=== PATIENT | female | born 1995 | race Caucasian/White ===

== ENCOUNTER 2020-06-30 22:35 | Observation (INO) | payer BC, SELFPAY ==
--- NOTE | ~2020-06-30 | CT_ITS ---
EXAMINATION: CT abdomen pelvis w con EXAM DATE: 07/01/2020 02:02 INDICATION: Abdominal pain, recent UTI. Leukocytosis and nausea. TECHNIQUE: Spiral CT of the abdomen and pelvis was performed following intravenous injection of 100 m L Omnipaque 350. Axial, coronal and sagittal images were reviewed. The dose-length product (DLP) fo r this examination was 402.46 mGy-cm. The exposure was tailored according to patient size (auto mA e xposure control), and iterative reconstruction (ASIR) was used as additional dose reduction technique . FINDINGS: The liver, spleen, adrenal glands and pancreas are unremarkable. Gallbladder is unremarkab le. No biliary obstruction. Portal and splenic veins are patent. Kidneys enhance symmetrically. T here is no hydronephrosis. The uterus is anteverted and morphologically normal. Bladder unremarkabl e. Slight enhancement to the ureteral urothelium bilaterally, could indicate upper urinary tract infe ction. There is no retroperitoneal or pelvic lymphadenopathy. The appendix is normal. The stomach and small bowel are unremarkable. There is moderate to large am ount of colonic stool. No free intraperitoneal gas. The heart is normal in size. There are no pe ricardial or pleural effusions. The lung bases are unremarkable. The bones are unremarkable. IMPRESSION: 1. Mildly enhancing bilateral ureteral urothelium could indicate upper UTI. No CT evidence of pyelon ephritis. 2. Moderate to large amount of colonic stool and gas. Reviewed, dictated and finalized at location A. IMPRESSION: 1. Mildly enhancing bilateral ureteral urothelium could indicate upper UTI. No CT evidence of pyelonephritis. 2. Moderate to large amount of colonic stool and gas.
--- NOTE | ~2020-06-30 | XR_ITS ---
EXAMINATION: XR chest 2V EXAM DATE: 07/01/2020 02:05 INDICATION: Sepsis, numbness. TECHNIQUE: Frontal and lateral projections of the chest obtained and reviewed. There is no prior tu dy for comparison. FINDINGS: The lungs are clear. There are no pleural effusions. The cardiomediastinal silhouette is within normal limits. There is no pneumothorax suspected. There are no osseous abnormalities identi fied. Moderate to large amount of colonic gas. IMPRESSION: No acute cardiopulmonary findings. Moderate to large colonic gas. Reviewed, dictated and finalized at location A.
[2020-06-30 22:44] VITALS: BP 137/81; PULSE 122; RESP 17; TEMP 37.3; O2SAT 99
[2020-06-30 23:03] LABS: Basophils Absolute Auto 0.1 K/mm3 (0.0-0.1); Basophils Percent Auto 0.4 % (0.2-1.2); Eosinophils Absolute Auto 0.1 K/mm3 (0-0.3); Eosinophils Percent Auto 0.6 % (0-4.4); Hematocrit 40.5 % (37.0-47.0); Hemoglobin 13.6 g/dL (12.0-15.0); Immature Granulocyte Absolute 0.13 K/mm3 (0.00-0.031); Immature Granulocyte Percent A 0.7 % (0-0.5); Lymphocytes Absolute Auto 2.76 K/mm3 (0.9-3.2); Lymphocytes Percent Auto 15.2 % (18.3-44.2); Mean Corpuscular HGB Conc 33.6 g/dl (32-36); Mean Corpuscular Hemoglobin 29.2 pg (26-34); Mean Corpuscular Volume 86.9 fl (80-100); Mean Platelet Volume 11.2 fl (7.4-10.4); Monocytes Absolute Auto 1.6 K/mm3 (0.1-0.6); Monocytes Percent Auto 8.5 % (2.6-8.5); Neutrophils Absolute Auto 13.5 K/mm3 (1.3-6.7); Neutrophils Percent Auto 74.6 % (45.5-73.1); Platelet Count Result 431 k/mm3 (150-375); Red Blood Count 4.66 M/mm3 (4.2-5.4); Red Cell Distribution Width 12.3 % (11.5-14.5); White Blood Count 18.2 K/mm3 (4.5-10.0)
[2020-06-30 23:15] LABS: Anion Gap 11 mmol/L (8-16); Blood Urea Nitrogen 10 mg/dL (7-17); Calcium 9.5 mg/dL (8.4-10.2); Carbon Dioxide 23 mmol/L (22-30); Chloride 104 mmol/L (98-107); Estimated CRCL calculation 106 ml/min; Estimated Glomerular Filt Rate > 60; Glucose 141 mg/dL (65-105); Lactic Acid Reflex 1.2 mmol/L (0.7-2.1); Potassium 4.1 mmol/L (3.4-5.0); Sodium 138 mmol/L (137-145)
[2020-06-30 23:43] LABS: Add Urine Microscopic? NO; Appearance Urine Clear (Clear); Bilirubin Urine Negative (Negative); Blood Urine Negative (Negative); Color Urine Yellow (Yellow); Glucose Urine UA Negative (Negative); Ketones Urine Negative (Negative); Leukocyte Esterase Ur Negative LEU/UL (Negative); Nitrate Urine Negative (Negative); Protein Urine Negative (Negative); Specific Grav Ur 1.014 (1.001-1.035); Urobilinogen Urine Negative mg/dL (<2.0)
--- NOTE | 2020-06-30 23:53 | ED.GENADULT ---
HPI - General Adult General Chief complaint: Unspecified Stated complaint: my arms are going numb, Time Seen by Provider: 06/30/20 23:53 Source: patient and family Mode of arrival: ambulatory Limitations: no limitations History of Present Illness HPI narrative: Patient is a 24-year-old female who presents for evaluation of abdominal pain. Patient is reporting subjective fevers, fatigue, abdominal pain and back pain over the past 24 hours. Patient states she saw Dr. Yang earlier this week for abdominal pain and was diagnosed with a urinary tract infection started on Bactrim and then changed over to ciprofloxacin and she has been taking that as prescribed. She denies any vaginal bleeding, discharge, dysuria or hematuria. She reports aching back pain in the bilateral flanks. She states at times she feels as if her arms are tingling, but denies any arm weakness, patient does states she feels diffusely weak and tired. Patient reports nausea without vomiting. She reports pain throughout her abdomen. Related Data Home Medications Medication Instructions Recorded Confirmed ciprofloxacin HCl 06/30/20 nitrofurantoin monohyd/m-cryst 06/30/20 sulfamethoxazole-trimethoprim 06/30/20 Allergies Allergy/AdvReac Type Severity Reaction Status Date / Time diphenhydramine Allergy Unknown Unknown Verified 06/30/20 23:28 Penicillins AdvReac Fainting Verified 06/30/20 23:28 Review of Systems Review of Systems: Narrative: CONSTITUTIONAL: Subjective fever and chills EYES: Denies visual changes ENT: Denies rhinorrhea, congestion, sore throat, or otalgia. CARDIOVASCULAR: Denies chest pain, palpitations, or edema. RESPIRATORY: Denies cough or dyspnea. GASTROINTESTINAL: Reports abdominal pain and nausea GENITOURINARY: Denies dysuria or hematuria. SKIN: Denies rash or itching. MUSCULOSKELETAL: Reports flank pain NEUROLOGIC: Denies headache, numbness, reports feeling diffusely weak PMFSH Past Medical History Medical History (Updated 07/01/20 @ 02:28 by Diane Alvarez MD) No pertinent past medical history Social History Social History (Updated 07/01/20 @ 00:39 by Diane Alvarez MD) Smoking status: Never smoker Alcohol intake: never Substance use: never Gender identity (if verbalized by the patient): Female Exam Narrative: Exam Narrative: GENERAL: Awake, alert, conversant, uncomfortable appearing HEAD: Normocephalic, atraumatic. EYES: PERRLA and EOMI. ENT: Nares clear, no rhinorrhea or epistaxis. Mucous membranes moist. NECK: Supple. CHEST: No respiratory distress, breathing even and non labored HEART: Tachycardic rate, sinus rhythm ABDOMEN: Mild distention, diffusely tender, positive guarding, bilateral flank tenderness EXTREMITIES: Normal range of motion. No edema. SKIN: Warm, dry, no rash. NEURO:No focal deficits. Alert and oriented x3 Course Vital Signs Vital signs: Vital Signs Temperature 37.3 C 06/30/20 22:44 Pulse Rate 122 H 06/30/20 22:44 Respiratory Rate 17 06/30/20 22:44 Blood Pressure 137/81 06/30/20 22:44 Pulse Oximetry 99 06/30/20 22:44 Temperature 37.3 C 06/30/20 22:44 Pulse Rate 84 07/01/20 02:29 Respiratory Rate 18 07/01/20 02:29 Blood Pressure 117/67 07/01/20 02:29 Pulse Oximetry 100 07/01/20 02:29 Medical Decision Making MDM Narrative Medical decision making narrative: Patient presenting for evaluation of abdominal pain, flank pain in the setting of known urinary tract infection, patient currently taking ciprofloxacin. Patient states she no longer is having any dysuria, hematuria or frequency but has had flank pain, nausea, abdominal pain. On exam the patient has a quite tender abdominal exam and bilateral flank tenderness. She is tachycardic. IV access obtained, patient was given a 30 mL/kg fluid bolus, antiemetic and pain medication. Laboratory results notable for a significant leukocytosis. No lactic acidosis. Urinalysis is actually quite cl
--- NOTE | 2020-07-01 00:39 | PC.NURSE ---
Called lab to add on c-reactive protein
[2020-07-01 00:50] VITALS: BP 123/55; PULSE 87; RESP 16; O2SAT 100
[2020-07-01 01:04] LABS: CRP 1.3 mg/dL (<1.0)
[2020-07-01] MEDS: ONDANSETRON INJ 4 MG/2 ML VIAL IV PUSH (01:29)
[2020-07-01] MEDS: MORPHINE SULFATE 4 MG/ML INJ IV PUSH (01:30)
[2020-07-01 02:00] VITALS: TEMP 37.3
[2020-07-01 02:29] VITALS: BP 117/67; PULSE 84; RESP 18; O2SAT 100
[2020-07-01 03:24] VITALS: BP 111/71; PULSE 81; RESP 16; O2SAT 100
[2020-07-01] MEDS: SODIUM CHLORIDE 0.9% IV 1,000 ML 125 ML IV CONT (04:17)
--- NOTE | 2020-07-01 04:23 | ADMGEN ---
This patient, Sharla Toure, was admitted to 2 Medical Room 247-. Patient/family oriented to hospital policies and general routines including ID bracelet, bed and alarms, visiting hours, pain management, procedures, bathroom and other care routines, personal items, smoking policy, room service/diet, and visiting hours. Valuables list has been completed. Information on how to activate the Rapid Response Team has been discussed. Patient/Family are encouraged to report perceived risks to care and to ask questions if they do not understand what they are told or what they should do.
[2020-07-01 06:00] VITALS: BP 113/67; PULSE 83; RESP 21; TEMP 36.1; O2SAT 100; BMI 27.1
[2020-07-01] MEDS: polyethylene glycoL 3350 17 GM POWD.PACK PO (10:24)
[2020-07-01] MEDS: PANTOPRAZOLE SOD SESQUIHYDRATE 20 MG TAB PO (10:24)
[2020-07-01] MEDS: SIMETHICONE 125 MG CHEW TAB PO (10:24)
[2020-07-01 11:00] LABS: Hematocrit 36.7 % (37.0-47.0); Hemoglobin 12.3 g/dL (12.0-15.0); Mean Corpuscular HGB Conc 33.5 g/dl (32-36); Mean Corpuscular Hemoglobin 29.6 pg (26-34); Mean Corpuscular Volume 88.2 fl (80-100); Mean Platelet Volume 11.4 fl (7.4-10.4); Platelet Count Result 383 k/mm3 (150-375); Red Blood Count 4.16 M/mm3 (4.2-5.4); Red Cell Distribution Width 12.4 % (11.5-14.5); White Blood Count 10.7 K/mm3 (4.5-10.0)
[2020-07-01 11:26] LABS: Alanine Aminotransferase 10 U/L (4-35); Albumin Level 4.2 g/dL (3.5-5.1); Alkaline Phosphatase 65 U/L (38-126); Anion Gap 9 mmol/L (8-16); Aspartate Amino Transferase 18 U/L (14-36); Bilirubin,Total 0.1 mg/dL (0.2-1.3); Blood Urea Nitrogen 7 mg/dL (7-17); Calcium 9.2 mg/dL (8.4-10.2); Carbon Dioxide 24 mmol/L (22-30); Chloride 108 mmol/L (98-107); Estimated CRCL calculation 117 ml/min; Estimated Glomerular Filt Rate > 60; Glucose 96 mg/dL (65-105); Potassium 3.7 mmol/L (3.4-5.0); Sodium 141 mmol/L (137-145)
[2020-07-01 11:54] LABS: Amphetamine Screen Urine Negative (Negative); Barbiturate Screen Urine Negative (Negative); Benzodiazepines Screen Urine Negative (Negative); Cannabinoid Screen Urine Negative (Negative); Cocaine Screen Urine Negative (Negative); Methadone Screen Urine Negative (Negative); Opiate Screen Urine Negative (Negative); Phencyclidine Screen Urine Negative (Negative)
--- NOTE | 2020-07-01 12:01 | PM.DS ---
DS: Admitting Diagnosis Admitting Diagnosis Admitting Diagnosis: Sepsis, Pyelonephritis DS: Summary Time Spent with Patient Time attestation: Total time spent providing and/or coordinating discharge services: DS: Data Data Completed and Pending Labs on day of discharge: Labs from last 24 hours 07/01/20 07/01/20 07/01/20 10:34 10:16 10:16 WBC 10.7 H RBC 4.16 L Hgb 12.3 Hct 36.7 L MCV 88.2 MCH 29.6 MCHC 33.5 RDW 12.4 Plt Count 383 H MPV 11.4 H Immature Gran % (Auto) Neut % (Auto) Lymph % (Auto) [place] % (Auto) Eos % (Auto) Baso % (Auto) Lymph # (Auto) [place] # (Auto) Eos # (Auto) Baso # (Auto) Abs Immat Gran (auto) Absolute Neuts (auto) Absolute Nucleated RBC Nucleated RBC % Sodium 141 Potassium 3.7 Chloride 108 H Carbon Dioxide 24 Anion Gap 9 BUN 7 Creatinine 0.60 L Estim Creat Clear Calc 117 Estimated GFR > 60 Glucose 96 Lactic Acid Calcium 9.2 Total Bilirubin Direct Bilirubin AST ALT Alkaline Phosphatase C-Reactive Protein Total Protein Albumin Urine Color Urine Appearance Urine pH Ur Specific Rice Urine Protein Urine Glucose (UA) Urine Ketones Ur Blood (Man) Urine Nitrate Urine Bilirubin Urine Urobilinogen Leukocyte Esterase Rfl Urine Opiates Screen Negative Urine Methadone Screen Negative Ur Barbiturates Screen Negative Ur Phencyclidine Scrn Negative Ur Amphetamine Screen Negative U Benzodiazepines Scrn Negative Urine Cocaine Screen Negative U Cannabinoids Screen Negative 07/01/20 06/30/20 06/30/20 10:16 23:36 22:57 WBC RBC Hgb Hct MCV MCH MCHC RDW Plt Count MPV Immature Gran % (Auto) Neut % (Auto) Lymph % (Auto) [place] % (Auto) Eos % (Auto) Baso % (Auto) Lymph # (Auto) [place] # (Auto) Eos # (Auto) Baso # (Auto) Abs Immat Gran (auto) Absolute Neuts (auto) Absolute Nucleated RBC Nucleated RBC % Sodium Potassium Chloride Carbon Dioxide Anion Gap BUN Creatinine Estim Creat Clear Calc Estimated GFR Glucose Lactic Acid Calcium Total Bilirubin 0.1 L Direct Bilirubin 0.0 AST 18 ALT 10 Alkaline Phosphatase 65 C-Reactive Protein 1.3 H Total Protein 8.0 Albumin 4.2 Urine Color Yellow Urine Appearance Clear Urine pH 5.0 Ur Specific Rice 1.014 Urine Protein Negative Urine Glucose (UA) Negative Urine Ketones Negative Ur Blood (Man) Negative Urine Nitrate Negative Urine Bilirubin Negative Urine Urobilinogen Negative Leukocyte Esterase Rfl Negative Urine Opiates Screen Urine Methadone Screen Ur Barbiturates Screen Ur Phencyclidine Scrn Ur Amphetamine Screen U Benzodiazepines Scrn Urine Cocaine Screen U Cannabinoids Screen 06/30/20 06/30/20 06/30/20 22:57 22:57 22:57 WBC 18.2 H RBC 4.66 Hgb 13.6 Hct 40.5 MCV 86.9 MCH 29.2 MCHC 33.6 RDW 12.3 Plt Count 431 H MPV 11.2 H Immature Gran % (Auto) 0.7 H Neut % (Auto) 74.6 H Lymph % (Auto) 15.2 L [place]bert % (Auto) 8.5 Eos % (Auto) 0.6 Baso % (Auto) 0.4 Lymph # (Auto) 2.76 [place] # (Auto) 1.6 H Eos # (Auto) 0.1 Baso # (Auto) 0.1 Abs Immat Gran (auto) 0.13 H Absolute Neuts (auto) 13.5 H Absolute Nucleated RBC 0.0 Nucleated RBC % 0.0 Sodium 138 Potassium 4.1 Chloride 104 Carbon Dioxide 23 Anion Gap 11 BUN 10 Creatinine 0.70 Estim Creat Clear Calc 106 Estimated GFR > 60 Glucose 141 H Lactic Acid 1.2 Calcium 9.5 Total Bilirubin Direct Bilirubin AST ALT Alkaline Phosphatase C-Reactive Protein Total Protein Albumin Urine Color Urine Appearance Urine pH Ur Specific Rice Urine Pr
--- NOTE | 2020-07-01 12:02 | PM.SD ---
Same Day Admit/Disch: HPI History of Present Illness Chief complaint: Sepsis, Pyelonephritis Narrative: Sharla Toure is a 24 year old female who presented emergency room for abdominal pain, weakness and overall feeling unwell. Patient states that on Tuesday she noted blood in her urine with some stomach pain and back pain and was unable to stand up straight. She went to see her doctor, Dr. jones, who did a urinalysis on her and prescribed her Bactrim. She then said Tuesday she felt much better but started to feel bad again on Tuesday. She called her primary care physician who prescribed her Cipro. She took 1 pill and started to feel very funny. She felt weak, had abdominal pain, and felt like her fingers were tingling. She came in the emergency room for this reason. Since then, her hematuria has improved and she is urinating fine. She no longer has the abdominal pain and she has been eating and drinking fine today. Says she has some lightheadedness when she came in but overall is feeling better. She denies chest pain, shortness of breath, fevers, nausea, vomiting, diarrhea but does have some constipation. She says she usually has a bowel movement once a week and that is been pretty constant for her. She has no concerns for STIs or . She just had her Pap and everything came back normal according to her. [facility] Past Medical History Medical History No pertinent past medical history Family History Family History (Updated 07/01/20 @ 15:37 by Cathie Brock PA-C) Mother Healthy adult Father Healthy adult Social History Social History (Updated 07/01/20 @ 15:37 by Cathie Brock PA-C) Social History: Patient does not smoke cigarettes or drink alcohol. She smokes marijuana about twice a week. She does no drugs. 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 She would like to designate her mother, Henna, as her surrogate decision maker. She would like to be a full code Smoking status: Never smoker Alcohol intake: never Substance use: current Substance use type: marijuana Last use: 05/31/2020 Gender identity (if verbalized by the patient): Female Spiritual care concerns: No Same Day Admit/Disch: Med Pre-admit Medications Home Medications Medication Instructions Recorded Confirmed Type doxycycline hyclate 100 mg PO BID 7 Days #14 cap 07/01/20 Rx pantoprazole [Protonix] 20 mg PO QAM #30 tablet 07/01/20 Rx polyethylene glycol 3350 [Miralax] 17 g PO QAM #30 ea 07/01/20 Rx Exam Narrative: Exam Narrative: General:Well developed well nourished patient resting comfortably in bed in no acute distress HEENT: Normocephalic, atraumatic, PERRL, Sclerae anicteric, oral mucosa moist. Neck: Supple Resp: CTA Heart: RRR with no murmurs Abd: Soft, nontender. No pain to palpation. Positive bowel sounds Skin: Warm and dry Extremities: No swelling, erythema or pain to palpation Neuro: Alert and Oriented x4 . CN 2-12 intact. No focal neurological deficits. DS: Data Data Completed and Pending Labs on day of discharge: Labs from last 24 hours 07/01/20 07/01/20 07/01/20 10:34 10:16 10:16 WBC 10.7 H RBC 4.16 L Hgb 12.3 Hct 36.7 L MCV 88.2 MCH 29.6 MCHC 33.5 RDW 12.4 Plt Count 383 H MPV 11.4 H Immature Gran % (Auto) Neut % (Auto) Lymph % (Auto) [place] % (Auto) Eos % (Auto) Baso % (Auto) Lymph # (Auto) [place] # (Auto) Eos # (Auto) Baso # (Auto) Abs Immat Gran (auto) Absolute Neuts (auto) Absolute Nucleated RBC Nucleated RBC % Sodium 141 Potassium 3.7 Chloride 108 H Carbon Dioxide 24 Anion Gap 9 BUN 7 Creatinine 0.60 L Estim Creat Clear Calc 117 Estimated GFR > 60 Glucose 96 Lactic Acid Calcium 9.2 Total Bilirubin Direct Bilirubin AST ALT Alkaline Phosphatase C-Reactive Protein Total Protein Albumin Uri
--- NOTE | 2020-07-04 07:42 | PC.NURSE ---
Urine cx is negative.
--- NOTE | 2020-07-08 10:46 | PC.NURSE ---
Blood cx are negative.
== END 2020-07-01 12:42 | disposition home or self-care (01) ==
LOC: ANHED 07-01 02:28 → ANH2MED 07-01 03:24
PROVIDERS: Physician Assistant; Admitting Provider Internal Medicine; Emergency Provider Emergency Medicine; PCP Family Medicine; Visit Provider Internal Medicine
DX: A41.9 Sepsis, unspecified organism (principal); N39.0 Urinary tract infection, site not specified; K59.00 Constipation, unspecified; N83.202 Unspecified ovarian cyst, left side
CPT/HCPCS: 36415; 71046; 74177; 80048; 80076; 80307; 81003; 81025; 83605; 85025; 85027; 86140; 87040; 87086; 96361; 96365; 96375; 99285; A9270; G0378; J0131; J0696; J2270; J2405; J7030; J7050; Q9967

== ENCOUNTER 2020-07-19 01:28 | Outpatient (CLI) | payer BC, SELFPAY ==
[2020-07-19 18:02] LABS: SARS-CoV-2 RNA PCR Negative
== END 2020-07-19 01:29 | disposition home or self-care (01) ==
LOC: ANHCOVIDDT 01:28
PROVIDERS: PCP Family Medicine; Visit Provider Internal Medicine Gastroenterology
DX: Z01.812 Encounter for preprocedural laboratory examination (principal); Z20.828 Contact with and (suspected) exposure to other viral communicable diseases
CPT/HCPCS: 87635; C9803; U0003

== ENCOUNTER 2020-07-21 01:14 | Day surgery (SDC) | payer BC, SELFPAY ==
[2020-07-16 13:38] VITALS: BMI 25.7
[2020-07-21 08:27] VITALS: BP 114/62; PULSE 82; RESP 16; TEMP 36.3; O2SAT 100; BMI 25.9
[2020-07-21] MEDS: LACTATED RINGERS 1,000 ML 150 ML IV CONT (08:48)
--- NOTE | 2020-07-21 08:52 | PM.HPGS ---
History of Present Illness History of Present Illness Consent: Risks, benefits, and alternatives have been discussed and questions answered. Patient agrees to proceed with procedure. Chief complaint: Epigastric pain Possible Ulcer Narrative: Sharla Toure is a 24 year old W female referred for gastroscopy for evaluation of epigastric abdominal pain nausea and bloating. Patient was recently treated for urinary tract infection treated with doxycycline and the abdominal pain got somewhat better with this. She has had a couple episodes of loose stools. She denies any evidence of gastrointestinal bleeding. She denies any nonsteroidal inflammatory drugs. [facility] Past Medical History Medical History No pertinent past medical history Family History Family History (Updated 07/01/20 @ 15:37 by Cathie Brock PA-C) Mother Healthy adult Father Healthy adult Social History Social History (Updated 07/01/20 @ 15:37 by Cathie Brock PA-C) Social History: Patient does not smoke cigarettes or drink alcohol. She smokes marijuana about twice a week. She does no drugs. 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 She would like to designate her mother, Henna, as her surrogate decision maker. She would like to be a full code Smoking status: Never smoker Alcohol intake: never Substance use: current Substance use type: marijuana Other substance usage details: 2 TIMES A MONTH Last use: 04/2020 Living arrangements: with friend(s) Gender identity (if verbalized by the patient): Female Spiritual care concerns: No Meds Home Medications and Allergies Home Medications Medication Instructions Recorded Confirmed Type pantoprazole [Protonix] 20 mg PO QAM #30 tablet 07/01/20 07/16/20 Rx polyethylene glycol 3350 [Miralax] 17 g PO QAM #30 ea 07/01/20 Rx Allergies Allergy/AdvReac Type Severity Reaction Status Date / Time diphenhydramine Allergy Severe suicidal Verified 07/21/20 08:25 apple Allergy Swelling Verified 07/21/20 08:25 of Lip/Tongue/Throat ruby Allergy Swelling Verified 07/21/20 08:25 of Lip/Tongue/Throat Penicillins AdvReac Fainting Verified 07/21/20 08:25 Vital Signs Vital Signs - 24 hr 07/21/20 08:27 Temperature 36.3 C L Pulse Rate 82 Respiratory Rate 16 Blood Pressure 114/62 Pulse Oximetry 100 Exam Const: Orientation/consciousness: patient oriented x3 Resp: Auscultation: clear to auscultation bilaterally Cardio: Rate: regular rate Rhythm: regular rhythm Heart sounds: no murmurs GI: GI Palp: Yes Soft to palpation, No Tenderness to palpation present (GI), Yes No hepatosplenomegaly present and No Palpable mass present Auscultation: normal bowel sounds Neuro: General: patient oriented x3 and no focal motor deficits Extrem: General: no pedal edema Assessment and Plan Additional Plan EGD for evaluation of abdominal pain abdominal bloating or nausea
[2020-07-21 10:41] VITALS: BP 91/44; PULSE 77; RESP 20; O2SAT 100
[2020-07-21 10:51] VITALS: BP 113/63; PULSE 87; RESP 20; O2SAT 100
[2020-07-21 11:01] VITALS: BP 110/74; PULSE 84; RESP 20; O2SAT 100
== END 2020-07-21 11:29 | disposition home or self-care (01) ==
PROVIDERS: PCP Family Medicine; Visit Provider Internal Medicine Gastroenterology
PROC: 0DJ08ZZ Inspection of Upper Intestinal Tract, Via Natural or Artificial Opening Endoscopic (ICD-10-PCS; CPT 43235; principal; 2020-07-21 09:30)
DX: R10.13 Epigastric pain (principal); R14.0 Abdominal distension (gaseous); R11.0 Nausea; K21.9 Gastro-esophageal reflux disease without esophagitis; Z88.0 Allergy status to penicillin
CPT/HCPCS: 43239; 87081; 88305; J2704; J7120

== ENCOUNTER 2020-12-02 08:25 | Outpatient (CLI) | payer BC, SELFPAY ==
--- NOTE | ~2020-12-02 | XR_ITS ---
EXAMINATION: XR UGIAC w small bowel EXAM DATE: 12/02/2020 09:59 INDICATION: Abd pain, hx of abnormal hydrogen breath test. TECHNIQUE: Dumper radiograph was acquired. Standard single and double contrast barium upper GI examina tion was performed followed by small bowel series. Spot images of the terminal ileum were acquired. The DAP for this procedure was 16 Gycm2. FINDINGS: There is no esophageal stricture, diverticulum or mass identified. Gastroesophageal juncti on is normal in appearance. Reflux was not demonstrated during this examination. The stomach has a normal appearance without evidence of mass lesion, ulceration or filling defect. T here is normal rugal fold pattern. The duodenum and duodenal sweep are normal in appearance. Ileal and jejunal fold patterns are normal. There is no small bowel wall thickening or mass effect d isplacing small bowel. There are no intraluminal filling defects identified. There is no small austin l dilation. Terminal ileum is normal in appearance. Contrast reached the colon by 30 minutes. IMPRESSION: Normal exam. Reviewed, dictated and finalized at location A. [employer] IMPRESSION: Normal exam.
== END 2020-12-02 08:26 | disposition home or self-care (01) ==
PROVIDERS: Family Provider Family Medicine; PCP Family Medicine; Visit Provider Internal Medicine Gastroenterology
DX: K63.89 Other specified diseases of intestine (principal)
CPT/HCPCS: 74246; 74248

== ENCOUNTER 2021-01-08 09:10 | Outpatient (CLI) | payer BC, SELFPAY ==
--- NOTE | ~2021-01-08 | NM_ITS ---
EXAM: NM gastric emptying study DATE: 01/08/2021 14:00 INDICATION: Abdominal distention. TECHNIQUE: A gastric emptying study was performed using the methodology of Lou PORTER, et al. J Nucl Med 2007; 48:568-572. The patient was given a meal consisting of 2 scrambled eggs labeled with 0.944 mCi Tc-99m sulfur colloid, 2 slices of toast, two packages of jam, and approximately 120 mL of water . Simultaneous anterior and posterior 1-min images of the abdomen were obtained with the patient supi ne at multiple time points over a total period of 4 hours. The geometric mean of anterior and posteri or views was determined, and the percentage retention was calculated for each time point. COMPARISON: CT abdomen and pelvis 07/01/2020 FINDINGS: Gastric retention of the radiotracer-labeled meal was 53%, 24%, and 2% at the 1-hour, 2-ho ur, and 4-hour time points, respectively. With this technique, apparent rapid gastric emptying is sug gested by <30% gastric retention at 1 hour. Delayed gastric emptying is defined by gastric retention of >90% at 1 hour, >60% retention at 2 hours, or >10% retention at 4 hours. IMPRESSION: 1. Normal gastric emptying. Reviewed, dictated and finalized at location A. [employer]IVER IMPRESSION: 1. Normal gastric emptying.
== END 2021-01-08 09:11 | disposition home or self-care (01) ==
PROVIDERS: PCP Family Medicine; Visit Provider Internal Medicine Gastroenterology
DX: R14.0 Abdominal distension (gaseous) (principal)
CPT/HCPCS: 78264; A9541

== ENCOUNTER 2025-05-27 12:32 | Outpatient (CLI) | payer OTHER, SELFPAY ==
--- OUTSIDE RECORDS SUMMARY | 2025-05-27 12:39 | XMS_ITS | Data Portability ---
Author Organization [facility] Address [address] [place] [place] [address] Assessment No assessment recorded. Plan of Treatment Reminders Order Date Submit Date Provider Last Modified By Organization Details Last Modified Time Details Appointments None recorded. Lab urinalysi s, dipstick 2019 020 [email or web address] [facility], [address], [place], [address], 0 13:07:47 Referral None recorded. Procedures None recorded. Surgeries None recorded. Imaging None recorded. Medication Orders Bactrim DS 800 mg-160 mg tablet 2019 020 INTERFACE [id number], [address] , [place], [place], [id number], 0 15:08:03 Patient TargetsNo targets recorded. Patient InstructionsNo instructions recorded. Reason for Referral None Reported. Results Created Date Observation Date Name Description Value Unit Range Abnormal Flag Note LastModifiedBy Organization Detail LastModifiedTime 06/27/20 20 06/30/2020 cultu re, urine specimen source Urine - Void Not Available [facility] ([facility]) [address] [facility] [address], [place], [address], 06/30/2020 10:23:47 06/27/20 20 06/30/2020 cultu re, urine culture, urine See Below See Micro biolo gy Repor t Not Available [facility] ([facility]) [address], [place], [address], 06/30/2020 10:23:47 06/27/20 20 06/30/2020 cultu re, urine staphylococc us saprophyticu s 25,000 -50,00 0 CFU/ml Staphy lococc us saprop hyticu s Not Available [facility] ([facility]) [address], [place], [address], 06/30/2020 10:23:47 06/27/20 20 06/30/2020 cultu re, urine sensitivity panel See Below ___ Organ ism S.sap ro Antib iotic INTER P ___ Dapto mycin S Genta micin S Levof loxac in S Linez olid S Nitro furan toin S Oxaci llin R Penic illin R Rifam pin S Tetra cycli ne S Vanco mycin S __ S=HENNY CEPTI BLE I=INT ERMED IATE R=RES ISTAN T Not Available [facility] ([facility]) [address] [facility] [address], [place], [address], 06/30/2020 10:23:47 06/27/20 20 06/30/2020 pap, LB Pap test thin prep Negati ve for Intrae pithel ial Lesion or Malign isma normal ACCES RAMON #: [id number]-PS [id number] Sourc e: Cervi jerica/E ndoce rvica l LMP: 06/14 Date Taken : 06/27 Speci men Type: ThinP rep Vial Date Repor prasanna: 2019 Clini jerica Data: Cytot ech: Kaitl in Suzanna Sheikh , CT( CP) Date Repor prasanna: 2019 Speci men Adequ acy: Satis facto ry for evalu ation No endoc ervic al/tr ansfo rmati on zone compo nent prese nt Gener al Categ oriza tion: NEGAT CATERINA FOR INTRA EPITH ELIAL LESIO N OR MALIG GRISELDA This speci men has been eliseo zed by the ThinP rep Imagi ng Syste m, an inter activ e compu ter syste m which coco ts the lab in the scree eliana of ThinP rep Pap Test slide s. Follo wing imagi ng, the slide was revie wed by a Cytot echno logis t and/o r Patho logis t. D N A A S S A Y S R E P O R T TEST NAME RESUL TS ----- ---- ----- -- HPV High Risk Scree n (TMA) ThinP rep Vial The human papil lomav irus (HPV) High Risk Scree n is an FDA-a pprov ed in-vi tro ampli fied nucle ic acid test for the quali tativ e detec tion of E6/E7 viral mRNA. Resul ts shoul d be corre lated with patie nt prese ntati on, histo ry, cervi jerica cytol ogy and other clini jerica and labor atory findi ngs. See https ://caprice Encision/s ericka/ fer lt/fi les/2 018-0 3/AW- 32075 _002_ 01.pd f for furth er infor matio n. Test perfo rmed by [facility] d/b/[facility], [address], [place] [address] , Juan Reilly ra, DO, [facility]. HPV High Risk *HPV NOT DETEC PRASANNA (TYPE S 16, 18, 31, 33, 35, 39, 45, 51, 52, 56, 58, 59, 66, 68) *HPV: The human papil lomav irus (HPV) High Risk Avni avelar is an FDA-a pprov ed in-vi tro ampli fied nucle ic acid test for the quali tativ e detec tion of E6/E7 viral mRNA. Resul ts shojere d be corre lated with maciel nt prese ntati on, histo ry, cervi jerica cytol ogy and other clini jerica and labor atory findi ngs. See https ://Handpay/s ites/ defau lt/fi les/2 018-0 3/AW- 50436 _002_ 01.pd f for manju er infor saturnino n. Test perfo rmed by [employer] [facility], d/b/a [facility], [address], [place] [address] , Juan Reilly ra, DO, [facility] [employer] [facility]. End of Repor t Techn ical servi cruz provi ded by [facility], d/b/a [facility], [address] [place] [address] Lam Mcgowan MD, [facility]. Case revie wed and diagn osis rende red at [facility], d/b/a [facility], [address] [place] [address] Lam Mcgowan MD, [facility]. CONFI DENTI AL Not Available [facility]) [address] [facility] [address], [place], [address], 06/30/2020 13:44:29 06/27/20 20 06/28/2020 HPV DNA, high- risk HPV high risk NOT DETECT ED normal Not Available [facility] ([facility]) [address] [facility] [address], [place], [address], 06/30/2020 13:44:29 06/27/20 20 06/27/2020 urina lysis , dipst ick Leukocytes ++ Not Available [facility] gen [address], [place], [address], 06/27/2020 15:03:47 06/27/20 20 06/27/2020 urina lysis , dipst ick Blood +++ Not Available [place] [address], [place], [address], 06/27/2020 15:03:47 Result Notes None recorded. Problems Name Problem SNOMED Code Status Onset Date Resolution Date Notes Provider Name and Address Organization Details Recorded Time Specializ ed medical examinati on Active 2014 Gynecolog ical Examinati on;Record ed Elsewhere : No Locati on: [facility] So urce: EHR Chron ic: N Practic e ID: 0001 Bill able Time: 03:45:00 PM Not Available [facility] 0 15:33:28 Family planning surveilla nce Active 2014 Contracep tive method surveilla nce;Recor ded Elsewhere : No Locati on: [facility] So urce: EHR Chron ic: N Practic e ID: 0001 Bill able Time: 03:45:00 PM Not Available [facility] 0 15:33:29 Implantat ion of subcutane ous contracep tive Active 2014 Insertion of implantab le subdermal contracep tive;Zak rded Elsewhere : No Locati on: [facility] So urce: EHR Chron ic: N Practic e ID: 0001 Bill able Time: 03:45:00 PM Not Available [facility] 0 15:33:[address] Concept Active 2015 Encntr for routine child health exam w/o abnormal findings; Recorded Elsewhere : No Locati on: [facility] So urce: EHR Chron ic: N Practic e ID: 0001 Bill able Time: 03:30:00 PM Not Available [facility] 0 15:33:29 Chlamydia l infection 265865622 Active 2015 Other chlamydia l diseases; Recorded Elsewhere : No Locati on: [facility] So urce: EHR Chron ic: N Practic e ID: 0001 Bill able Time: 03:30:00 PM Not Available [facility] 0 15:33:29 Evaluatio n finding Active 2015 Abnormal Pap smear of cervix;Re corded Elsewhere : No Locati on: [facility] So urce: EHR Chron ic: N Practic e ID: 0001 Bill able Time: 03:30:00 PM Not Available [facility] 0 15:33:29 Atypical squamous cells of undetermi meghna significa nce on cervical Papanicol aou smear 142643776 Active 2016 Atyp squam cell of undet signfc cyto smr crvx (ASC-US); Recorded Elsewhere : No Locati on: [facility] So urce: EHR Chron ic: N Practic e ID: 0001 Bill able Time: 01:30:00 PM Not Available [facility] 0 15:33:[address] Concept Active 2016 Encntr for general adult medical exam w/o abnormal findings; Recorded Elsewhere : No Locati on: [facility] So urce: EHR Chron ic: N Practic e ID: 0001 Bill able Time: 01:30:00 PM Not Available [facility] 0 15:33:30 Surveilla nce of contracep tion Active 2016 Encounter for surveilla nce of contracep tives, unspecifi ed;Record ed Elsewhere : No Locati on: [facility] So urce: EHR Chron ic: N Practic e ID: 0001 Bill able Time: 09:15:00 AM Not Available [facility] 0 15:33:30 Procedure Active 2016 Enctr srvlnc implantab le subdermal contracep tive;Prac karissa ID: 0001 Not Available [facility] 0 15:33:31 test negative 284726046 Active 2016 Encounter for test, result negative; Recorded Elsewhere : No Locati on: [facility] So urce: EHR Chron ic: N Practic e ID: 0001 Bill able Time: 11:00:00 AM Not Available [facility] 0 15:33:30 Low grade squamous intraepit helial lesion on cervical Papanicol aou smear 30770867605 105 Active 2016 LGSIL on pap smear of cervix;Re corded Elsewhere : No Locati on: [facility] So urce: EHR Chron ic: N Practic e ID: 0001 Bill able Time: 03:15:00 PM Not Available [facility] 0 15:33:[address] Concept Active 2016 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) (routine) w/o abn findings; Recorded Elsewhere : No Locati on: [facility] So urce: EHR Chron ic: N Practic e ID: 0001 Bill able Time: 04:00:00 PM Not Available [facility] 0 15:33:29 Infection screening Active 2017 Encounter for screening for oth infec/par astc diseases; Recorded Elsewhere : No Locati on: [facility] So urce: EHR Chron ic: N Practic e ID: 0001 Bill able Time: 10:15:00 AM Not Available [facility] 0 15:33:28 Syphilis test finding 287007341 Active 2017 Encntr screen for infection s w sexl mode of transmiss ;Recorded Elsewhere : No Locati on: [facility] So urce: EHR Chron ic: N Practic e ID: 0001 Bill able Time: 10:15:00 AM Not Available [facility] 0 15:33:29 Screening for malignant neoplasm of cervix Active 2017 Screening for malignant neoplasms of the cervix;Re corded Elsewhere : No Locati on: [facility] So urce: EHR Chron ic: N Practic e ID: 0001 Bill able Time: 10:15:00 AM Not Available [facility] 0 15:33:30 Problem Notes None recorded. Medical Equipment None Reported. Allergies Allergen ID Allergen Name Allergen Category Reaction Reaction Severity Criticality Documentation Date Start Date Code Code System Note Provider Name and Address Organization Details Recorded Time 1775 POLLEN EXTRACTS environme nt,medica tion Not available Not available Not available 06/27/2020 80853 6 RxNorm Faviola Menendez [facility] 0 14:54:52 1776 Product containin g penicilli n (product) medicatio n Not available Not available Not available 06/27/2020 12273 8001 SNOMED [address] Men[address] [facility] 0 14:54:58 Medications Name Sig Start Date Stop Date Status Note LastModified by Organization Details LastModified Time metronida zole 0.75 % (37.5 mg/5 gram) vaginal gel insert 1 applicat orful by vaginal route every day at bedtime for 5 nights 2017 active Prescrib ed Elsewher e: No Locat ion: [facility] odify By: keke salazar DateTime : 08/22/20 18 09:31:13 AM Not Available Not Available Not Available Macrobid 100 mg capsule Take 1 capsule every 12 hours by oral route for 7 days. 2019 active Not Available Not Available Not Avai lable meloxicam 7.5 mg tablet 06/27 completed Not Available Not Available Not Available ofloxacin 0.3 % ear drops 06/27 completed Not Available Not Available Not Available Bactrim DS 800 mg-160 mg tablet Take 1 tablet every 12 hours by oral route. 2019 active Not Available Not Available Not Avai lable Zithromax 500 mg tablet take 2 Tablet by oral route one time 11/22 completed Prescrib ed Elsewher e: No Locat ion: [facility]ify By: jose maria charles DateTime : 11/21/19 16 03:24:20 PM Not Available Not Available Not Available Ortho-Cyc nona (28) 0.25 mg-35 mcg tablet take 1 tablet by oral route every day 07/18 completed Prescrib ed Elsewher e: No [facility]at [facility] By: rosemary charles DateTime : 07/18/20 10:15:00 AM Not Available Not Available Not Available Flucelvax Quad (PF) 60 mcg (15 mcg x 4)/0.5 mL IM syringe 06/27 completed Not Available Not Available Not Available Vitals Date Recorded Body weight Body mass index (BMI) Body height Systolic And Diastolic Provider Name and Address Organization Details Last Updated DateTime 06/27/2020 84849.63 g 28 kg/m2 157.48 cm 124/76 mm[Hg] Faviola Menendez [facility] 06/27/2020 14:54:44 Social History None recorded. Functional Status None recorded. Mental Status None recorded. Family History Relationship Description Onset Age of this Age Resolved Age Notes LastModified by Organization Details LastModified Time Maternal Grandmother Diabetes mellitus [email or web address] Not available 2019 14:21:49 Maternal Grandmother Malignant tumor of breast [email or web address] Not available 2019 14:22:05 Notes:Maternal grandmother: Cancer, breast, Diabetes mellitus Maternal uncle: Hepatitis Medical History No medical history recorded. Gynecological History Statement/Question Response Date of LMP 06/14/2020 Obstetrics History GPAL:G 0 P 0 0 0 0 Past Encounters Encounter ID Performer Location Encounter Start Date Encounter Closed Date Diagnosis/Indication Diagnosis SNOMED-CT Code Diagnosis ICD10 Code Diagnosis Note [id number] Michael Yang MD [facility] [address] [address] 06/27/2020 14:45:41 06/27/2020 15:30:35 Urinary tract infectious disease 00886424 N39.0 this patient is a 24-year-ol d female with urinary tract symptoms. She has a positive the urine dip. Will culture urine. She will be treated with Bactrim. A repeat Pap smears performed follow-up on abnormal Pap smears. Health Concerns Section Related Observation LastModified by Organization Detai ls LastModified Time None Recorded Concern Status LastModified by Organization Details LastModified Time None Recorded Advance Directives Directive None Recorded Payers Insurance Date Sequence Insurance Name Policy Number Policy Lopes Covered Member ID Lopes Member ID Guarantor Name 06/27/2020 1 [place] [address] [id number] Sharla Toure Notes Date Note Type Note Provider Name a nd Address Organization Details Recorded Time 06/27/2020 text/html Lower Urinary Tract Symptoms (LUTS)Reported bypatient.Locat ion:left Quality:aching Severity:consta nt Duration:10-20 times a day Associated Symptoms:flank pain;urgency Is a 22-year-old female with urinary symptoms. She has urgency, dysuria, frequency. She reports some flank pain. She reports some hot cold body sensations. She denies any nausea, vomiting, fever, chills. Michael Yang MD [address], [place], [address], [facility] 06/27/2020 15:12:12 OBGyn Episode No OBEpisode recorded.
--- OUTSIDE RECORDS SUMMARY | 2025-05-27 12:39 | XMS_ITS | Clinical Summary ---
Author Organization [facility] Address [address] [place] [address] Care Team Providers Care Green Building Materials Designer Name Role Phone Abby Muñoz MD Primary Care Provider + Allergies Active Allergy Reactions Criticality Noted Date Comments Apple Anaphylaxis High 09/23/2020 Stop breathing Rajan Anaphylaxis High 09/23/2020 Raw cherries Diphenhydramine Mental status changes Medium 0 suicidal Penicillins Dizziness Low 09/23/2020 fainting Medications cetirizine (ZyrTEC) 10 mg tablet Take 10 mg by mouth as needed Active hyoscyamine (LEVSIN) 0.125 mg SL tablet DISSOLVE 1 TABLET UNDER THE TONGUE TWICE DAILY 60 tablet 07/30/20 21 Active ondansetron ODT (ZOFRAN-ODT) 4 mg disintegrating tablet Take 1 tablet (4 mg total) by mouth every 8 (eight) hours as needed for nausea or vomiting 20 tablet 09/01/20 23 Active famotidine (PEPCID) 40 mg tablet Take 1 tablet (40 mg total) by mouth nightly as needed for heartburn or indigestion 20 tablet 09/01/20 23 Active Active Problems No known active problems Social History Tobacco Use Types Packs/Day Years Used Date Smoking Tobacco: Never Smokeless Tobacco: Never AUDIT-C Answer Date Recorded Q1: How often do you have a drink containing alc ohol? Never 05/28/2021 Average Number of Drinks Not on file 021 Frequency of Binge Drinking Not on file 05/08 Personal Safety Answer Date Recorded Have you ever been in or are you currently in a harmful physical or emotional relationship or is someone making you feel afraid or unsafe? 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 Gender Identity Female 10/22/2021 9:00 AM BUSINESS RELATIONS MANAGER Sexual Orientation Not on file Obstetrics History Last Filed Vital Signs Vital Sign Reading Time Taken Comments Blood Pressure 117/72 09/01/2023 1:30 AM CDT Pulse 73 09/01/2023 2:15 AM CDT Temperature 36.6 C (97.9 F) 09/01/2023 12:00 AM CDT Respiratory Rate 18 09/01/2023 12:00 AM CDT Oxygen Saturation 99% 09/01/2023 2:15 AM CDT Inhaled Oxygen Concentration - - Weight 78 kg (172 lb) 09/01/2023 12:00 AM CDT Height 162.6 cm (5' 4) 05/28/2021 8:15 AM CDT Body Mass Index 29.52 05/28/2021 8:15 AM CDT Plan of Treatment Health Maintenance Due Date Last Done Comments Cervical Cancer Screening 1997 Depression Screening 1997 Hepatitis C Screening 1997 DTaP/Tdap/Td Vaccine (1 - Tdap) 2008 Varicella Vaccines (1 of 2 - 13+ 2-dose series) 2010 Hepatitis B Screening 2015 Regular Well Visit/Exam 18-64 2015 Influenza Vaccine (Season Ended) 2025 11/04/2020, 10/30/2019 HPV Vaccines Aged Out No longer eligi ble based on patient's age to complete this topic Pneumococcal vaccine <65 Aged Out No longer eligible based on patient's age to complete this topic Insurance [facility] ACCESS [facility] CHOICE PLUS [facility] CHO[facility] PLUS [facility] ACCESS CHOICE Member Subscriber Plan / Payer (Ef fective 2021-Present) Name:Sharla Toure Relation to Subscriber:Other Relationship Name:HENNA TOURE Subscriber ID:Not on file Date of :1959 (Home) Address: [address] [place] [address] Payer ID:[id number] (NAIC) Group ID:[id number] Type: ALLIANCE Address: [address] [place] [id number] Care Teams Green Building Materials Designer Relationship Specialty Start Date End Date Abby Muñoz MD [address] [place] [address] [address] [place] [id number] PCP - General Family Medicine 03/19/21
--- OUTSIDE RECORDS SUMMARY | 2025-05-27 12:39 | XMS_ITS | Referral Summary ---
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 [id number] [facility] CHOICE PLUS [facility] FEDERAL Member Subscriber Plan / Payer (Ef fective 1998-Present) Name:Sahrla Toure Relation to Subscriber:Child Name:HENNA TOURE Date of :1997 (Home) Address: [address] [place] [address] Payer ID:[id number] (NAIC) Group ID:[id number] Type: ALLIANCE Address: [address] CHOICE PLUS [place] [phone] [facility] ACCESS CHOICE Care Teams Golf Ball Inspector Relationship Specialty Start Date End Date Abby Muñoz MD [address] [place] [address] PCP - General Family Medicine 03/19/21
--- OUTSIDE RECORDS SUMMARY | 2025-05-27 12:40 | XMS_ITS | Clinical Summary ---
Author Organization [email or web address] Address [address] [facility] [place] [address] Care Team Providers Care Product Safety Technical Assistant Name Role Phone Ryne Pichardo MD Primary Care Provider [phone] Source Comments [facility] [email or web address] [facility],non-select specialty hospital Affiliates and Associated Physician Practices is amultiple site organization consisting of ambulatory clinics and hospital sitesin [place], [place], [place] and [place]. This disclosure is being madepursuant to the Care Everywhere program and may not contain all information available regarding this patient. Last updated 18.[facility] [email or web address] [facility] [employer] Allergies Active Allergy Reactions Criticality Noted Date Comments Apple Anaphylaxis High 09/23/2020 Stop breathing Rajan Anaphylaxis High 09/23/2020 Raw cherries Diphenhydramine Psychiatric Medium 09/23/2020 suicidal Penicillins Dizziness 09/23/2020 fainting Medications * Be aware that medications may not be up to date on this document. Alwaysverify current medications with the patient. cetirizine (ZYRTEC) 10 MG tablet Take 10 mg by mouth once daily Active Social History Tobacco Use Types Packs/Day Years Used Date Smoking Tobacco: Never Smokeless Tobacco: Never Alcohol Use Standard Drinks/Week Comments Yes 1 (1 standard drink = 0.6 oz pur e alcohol) 1 a month Comments Unknown Sex and Gender Information Value Date Recorded Sex Assigned at Not on file Legal Sex Female 7:16 PM MANAGER MARKETING SALES Gender Identity Not on file Sexual Orientation Not on file Last Filed Vital Signs Vital Sign Reading Time Taken Comments Blood Pressure - - Pulse - - Temperature - - Respiratory Rate - - Oxygen Saturation - - Inhaled Oxygen Concentration - - Weight 62.1 kg (137 lb) 09/23/2020 7:22 AM MANAGER MARKETING SALES Height 161.9 cm (5' 3.75) 09/23/2020 7:22 AM CS T Body Mass Index 23.7 09/23/2020 7:22 AM MANAGER MARKETING SALES Plan of Treatment Health Maintenance Due Date Last Done Comments HIV SCREENING 2012 HEPATITIS C SCREENING 09/23/2015 DTAP/TDAP/TD VACCINES (1 - Tdap) 2016 HEPATITIS B VACCINE (1 of 3 - 19+ 3-dose series) 2016 COVID-19 VACCINE (1 - 2023-2 5 season) 2024 HPV VACCINE (1 - 3-dose SCDM series) 2024 DEPRESSION SCREENING 11/07/2024 INFLUENZA VACCINE (#1) 2025 ZOSTER VACCINE (1 of 2) 2047 HIB VACCINE Aged Out No longer eligi ble based on patient's age to complete this topic MENINGOCOCCAL (Group B) VACC INE SHARED DECISION-MAKING Aged Out No longer eligibl e based on patient's age to complete this topic MENINGOCOCCAL GROUPS A/C/Y/W VACCINE Aged Out No longer eligible b ased on patient's age to complete this topic PNEUMOCOCCAL VACCINE Aged Out No long er eligible based on patient's age to complete this topic Insurance [id number] [facility] [address] [place] [id number] Care Teams Product Safety Technical Assistant Relationship Specialty Start Date End Date Ryne Pichardo MD [address] [place] [id number] PCP - General Family Medicine 09/23/20
[2025-05-27 13:35] LABS: Hematocrit 39.0 % (37.0-47.0); Hemoglobin 13.0 g/dL (12.0-15.0); Immature Granulocyte Percent A 0.6 % (0-0.5); Lymphocytes Absolute Auto 2.55 K/mm3 (0.9-3.2); Mean Corpuscular HGB Conc 33.3 g/dl (32-36); Mean Corpuscular Hemoglobin 29.7 pg (26-34); Mean Corpuscular Volume 89.2 fl (80-100); Nucleated Red Blood Cells Absolute Auto 0.000 K/mm3 (0.0-0.012); Nucleated Red Blood Cells Perc 0.0 % (0.0-0.2); Platelet Count Result 378 k/mm3 (150-375); Red Blood Count 4.37 M/mm3 (4.2-5.4); White Blood Count 8.9 K/mm3 (4.5-10.0)
[2025-05-27 15:12] LABS: Hemoglobin A1C 5.5 % (<5.7)
[2025-05-27 19:42] LABS: Alanine Aminotransferase 18 U/L (6-35); Albumin Level 4.6 g/dL (3.5-5.1); Alkaline Phosphatase 53 U/L (38-126); Anion Gap 7 mmol/L (4-12); Aspartate Amino Transferase 46 U/L (14-36); Bilirubin,Total 0.5 mg/dL (0.2-1.3); Blood Urea Nitrogen 16 mg/dL (7-17); Calcium 9.8 mg/dL (8.4-10.2); Carbon Dioxide 25 mmol/L (22-30); Chloride 104 mmol/L (98-107); Cholesterol 144 mg/dL (0-200); Estimated Glomerular Filt Rate > 60; Glucose 90 mg/dL (65-110); HDL Direct 42 mg/dL; Potassium 4.1 mmol/L (3.4-5.0); Sodium 136 mmol/L (137-145); Total Protein 8.1 g/dL (6.3-8.2); Triglycerides 67 mg/dL (<150)
[2025-05-27 20:01] LABS: Free T4 Free Thyroxine 1.29 ng/dL (0.78-2.19)
[2025-05-27 20:18] LABS: Thyroid Stimulating Hormone 1.980 uIU/mL (0.465-4.680)
== END 2025-05-27 12:33 | disposition home or self-care (01) ==
LOC: ANHGOSHLAB 12:33
PROVIDERS: PCP Family Medicine; Visit Provider Family Medicine
DX: Z00.00 Encounter for general adult medical examination without abnormal findings (principal); R53.83 Other fatigue; E55.9 Vitamin D deficiency, unspecified; R73.9 Hyperglycemia, unspecified; Z13.220 Encounter for screening for lipoid disorders; D64.9 Anemia, unspecified
CPT/HCPCS: 36415; 80053; 80061; 82306; 83036; 84439; 84443; 85025